=== PATIENT | male | born 1960 | race Caucasian/White ===

== ENCOUNTER → 2021-11-19 | Outpatient (CLI) | payer SELFPAY ==
[~2021-11-19] MED LIST: ACTOS30 MG PO; BYETTA; CEPHALEXIN500 M1 PO; CHOLESTEROL MED; LISINOPRIL1 POW; NORCO 325 MG-7.1 TAB PO; PRINIVIL10 MG PO; TOPROL; ZOCOR
== END ==
LOC: COL.RAD 14:07
DX: K57.92 Diverticulitis of intestine, part unspecified, without perforation or abscess without bleeding (principal); Z90.49 Acquired absence of other specified parts of digestive tract
CPT/HCPCS: Q9967

== ENCOUNTER 2023-10-26 17:32 | Emergency (ER) | payer SELFPAY ==
[~2023-10-26] VITALS: Ht 182.9 cm; Wt 150.0 kg
[2023-10-26 17:41] VITALS: TEMP 97.8
[2023-10-26 18:12] LABS: COLLECTION METHOD CATHETER
[2023-10-26 18:27] LABS: SQUAMOUS EPITHELIAL 0-2 /hpf (0-10); URINE APPEARANCE Clear (CLEAR/HAZY); URINE BLOOD TRACE-LYSED (NEGATIVE); URINE COLOR Yellow (YELLOW); URINE GLUCOSE 3+ (NEGATIVE); URINE KETONE Negative (NEGATIVE); URINE NITRATE Negative (NEGATIVE); URINE PROTEIN(semi-quant) Negative (NEGATIVE); URINE UROBILINOGEN 0.2 E.U/dL (0.2-1.0)
[2023-10-26 18:41] VITALS: BP 140/73; PULSE 81
== END 2023-10-26 19:17 | disposition home or self-care (01) ==
LOC: COL.ER 17:32
PROVIDERS: Physician Assistant
DX: R33.9 Retention of urine, unspecified (principal); R81 Glycosuria
CPT/HCPCS: 31860; A4314

== ENCOUNTER 2024-02-05 03:45 | Emergency (ER) | payer MEDICARE ==
[~2024-02-05] VITALS: Ht 180.3 cm; Wt 150.0 kg
[2024-02-05 03:57] VITALS: TEMP 98.4
[2024-02-05 04:12] LABS: BASO % 0.6 % (0.0-2.0); EOS # 0.2 K/mm3 (0.0-0.7); EOS % 3.5 % (0.0-4.0); GRAN # 3.4 K/mm3 (1.4-6.5); HEMOGLOBIN 13.4 g/dl (13.5-18.0); LYMPH # 2.1 K/mm3 (1.2-3.4); LYMPH % 32.8 % (20.0-51.0); MEAN CELL VOLUME 86 fl (80.0-100.0); MEAN CORPUSCULAR HEMOGLOBIN 29 pg (27-31); MEAN CORPUSCULAR HGB CONC 34 g/dl (33.0-37.0); MEAN PLATELET VOLUME 9.9 fl (7.4-10.4); MONO # 0.6 K/mm3 (0.1-0.6); MONO % 9.8 % (1.7-9.3); PLATELET COUNT 217 K/mm3 (130-400); RED BLOOD COUNT 4.68 M/mm3 (4.20-5.60); REDCELL DISTRIBUTION WIDTH-CV 14.3 % (11.5-14.5)
[2024-02-05] MEDS ORDERED: Ondansetron 4 MG/2 ML VIAL IV ONE (04:15)
[2024-02-05] MEDS ORDERED: Morphine 4 MG/ML VIAL IV ONE (04:15)
[2024-02-05] MEDS ORDERED: Nitroglycerin 2% Topical Oint 1 GM UD TD ONE (04:15)
[2024-02-05 04:31] LABS: ALBUMIN 4.1 g/dL (3.4-4.8); BILIRUBIN,TOTAL 0.5 mg/dL (0.2-1.2); CALCIUM 9.9 mg/dL (8.4-10.2); CREATININE, serum 1.18 mg/dL (0.72-1.25); POTASSIUM 3.8 mEq/L (3.5-4.5); TOTAL PROTEIN 7.2 g/dl (6.2-8.1)
[2024-02-05] MEDS ORDERED: GLUMETZA500 MG PO (04:33)
[2024-02-05] MEDS ORDERED: TOPROL XL 25MG25 MG (04:34)
[2024-02-05] MEDS ORDERED: PRINIVIL10 MG (04:34)
[2024-02-05 04:41] LABS: TROPONIN-I 0.04 ng/mL (0.00-0.033)
[2024-02-05] MEDS ORDERED: NS 1,000 ML IV ONE (05:00)
[2024-02-05 05:13] LABS: INR 1.1 (0.8-3.0); PROTHROMBIN TIME 11.5 SECONDS (9.7-12.8)
[2024-02-05] MEDS ORDERED: PROSCAR 5MG5 MG (05:15)
[2024-02-05] MEDS ORDERED: TRICOR 48MG48 MG (05:15)
[2024-02-05] MEDS ORDERED: LIPITOR 40MG TA40 MG (05:15)
[2024-02-05] MEDS ORDERED: INSULIN N (N100 U/ML SQ (05:16)
[2024-02-05] MEDS ORDERED: HUMULIN R 10100 U/ML SQ (05:17)
[2024-02-05] MEDS ORDERED: Heparin 5,000 UNITS/ML 1 ML VIAL IV PRN (05:45)
[2024-02-05] MEDS ORDERED: Heparin/D5W 250 ML IV SCH (05:45)
[2024-02-05] MEDS ORDERED: Heparin 5,000 UNITS/ML 1 ML VIAL IV ONE (05:45)
[2024-02-05 05:57] LABS: PARTIAL THROMBOPLASTIN TIME 31.3 SECONDS (26.0-37.0)
[2024-02-05] MEDS ORDERED: niCARdipine 200 ML IV SCH (06:15)
[2024-02-05] MEDS ORDERED: DOPamine/Dextrose 5%-Water 250 ML IV SCH (06:15)
[2024-02-05] MEDS ORDERED: Nitroglycerin/D5W 250 ML IV ONE (06:45)
[2024-02-05] MEDS ORDERED: fentaNYL 50 MCG/ML 2 ML VIAL IV ONE (06:45)
[2024-02-05 07:22] VITALS: BP 121/71; PULSE 56
== END 2024-02-05 07:50 | disposition short-term general hospital (02) ==
LOC: COL.ER 03:45
PROVIDERS: Nurse Practitioner Family; Personal Emergency Response Attendant
DX: I21.4 Non-ST elevation (NSTEMI) myocardial infarction (principal)
CPT/HCPCS: J1644; J2270; J2305; J2405; J3010; J7030

== ENCOUNTER 2024-02-19 08:24 | Outpatient (RCR) | payer MEDICARE ==
[~2024-02-19 08:24] MED LIST changes: +GLUMETZA500 MG PO; +HUMULIN R 10100 U/ML SQ; +INSULIN N (N100 U/ML SQ; +LIPITOR 40MG TA40 MG; +PRINIVIL10 MG; +PROSCAR 5MG5 MG; +TOPROL XL 25MG25 MG; +TRICOR 48MG48 MG
== END 2024-02-24 | disposition still patient (30) ==
LOC: COL.CR
DX: Z48.812 Encounter for surgical aftercare following surgery on the circulatory system (principal); Z98.61 Coronary angioplasty status; I21.9 Acute myocardial infarction, unspecified